=== PATIENT | female | born 1950 | race Caucasian/White ===

== ENCOUNTER 2017-04-30 10:46 | Day surgery (SDC) | payer MEDICARE ==
[2017-04-26 10:54] VITALS: BMI 28.0
[~2017-04-30 10:46] MED LIST: LACTATED RINGERS 1,000 ML IV SCH
[2017-04-30 12:10] VITALS: TEMP 97.3
[2017-04-30] MEDS ORDERED: LIDOCAINE 1% 20 ML VIAL (10MG/ML) FOR IV START INTRADERMA ONE (12:20)
[2017-04-30] MEDS ORDERED: LIDOCAINE 1% INJ 10MG/ML (20 ML MDV) ONE (12:25)
[2017-04-30] MEDS ORDERED: PROPOFOL 10 MG/ML 20 ML VIAL IV ONE (12:25)
[2017-04-30] MEDS ORDERED: MIDAZOLAM 2 MG/2 ML VIAL ONE (12:25)
--- NOTE | 2017-04-30 12:57 | P.PCN ---
Date of Procedure: 04/30/17 Procedure(s) Performed: Procedure: Total colonoscopy. Preoperative diagnosis: Screening for neoplasia. Postoperative diagnosis: Exam within normal limits. Preparation: HalfLytely prep. Sedation: Was provided by anesthesia. Brief clinical history: The patient is a 66-year-old female who is scheduled for this evaluation for screening for neoplasia. Her prior exam was more than 10 years ago. She has no abdominal complaints, bleeding or anemia. Procedure: With the patient on her left lateral decubitus position and after informed consent and adequate sedation, the perianal area was inspected and it did not show any fissures or fistulas. There were no masses felt on digital rectal examination. The Olympus CFQ 160L inserted in the rectum in the usual fashion and advanced to the cecum. The mucosa appeared healthy. No polyps or tumors were seen or any obvious diverticular disease or other pathology. I retroflexed the endoscope in the rectum before the endoscope was withdrawn. The patient tolerated the procedure well. Plan: The patient was reassured. She will follow-up with you as planned and I recommended repeat exam in 10 years.
[2017-04-30 13:18] VITALS: PULSE 69; RESP 18
[2017-04-30] MEDS ORDERED: IV FLUID CONTINUATION 700 ML IV ONE (13:21)
[2017-04-30 13:52] VITALS: BP 175/79
== END 2017-04-30 14:13 | disposition home or self-care (01) ==
LOC: ORWHC2ENDO 10:46
DX: Z12.11 Encounter for screening for malignant neoplasm of colon (principal); K21.9 Gastro-esophageal reflux disease without esophagitis; I10 Essential (primary) hypertension; E78.5 Hyperlipidemia, unspecified; Z79.899 Other long term (current) drug therapy; Z88.5 Allergy status to narcotic agent
CPT/HCPCS: J2250; J2001; J2704; G0121

== ENCOUNTER 2024-08-11 14:04 | Emergency (ER) | payer MEDICARE ==
--- NOTE | 2024-08-11 15:00 | ED ---
Lower Extremity Injury HPI - General Chief Complaint: Extremity Injury, Lower Stated Complaint: L knee pain Time Seen by Provider: 08/11/24 14:20 Source: patient, family, RN notes reviewed Mode of arrival: wheelchair Limitations: no limitations - History of Present Illness Initial Comments: This is a 74-year-old female presenting to the emergency room for complaint of left knee pain. Patient states that 2 to 3 weeks ago she fell onto her left knee after slipping on the ice outside and has been having difficulty bearing weight on the left knee since. States over the past few days she has been able to put pressure on the left knee. Denies previous surgeries of the left knee. - Related Data Home Medications Medication Instructions Recorded Confirmed Simvastatin [Zocor] 20 mg PO 1900 04/26/17 09/05/22 Cetirizine HCl [Zyrtec] 10 mg PO DAILY 09/05/22 09/05/22 Cholecalciferol (Vitamin D3) 75 mcg PO DAILY 09/05/22 09/05/22 [Vitamin D3 (3000 Iu)] Famotidine [Pepcid] 20 mg PO BID 09/05/22 09/05/22 Losartan Potassium 50 mg PO HS 09/05/22 09/05/22 Melatonin 3 mg PO DAILY 09/05/22 09/05/22 atenoloL 25 mg PO DAILY 09/05/22 09/05/22 methIMAzole [Tapazole] 5 mg PO MOWEFR 09/05/22 09/05/22 Allergies Allergy/AdvReac Type Severity Reaction Status Date / Time hydromorphone [From Dilaudid] Allergy Vomiting Verified 08/11/24 14:08 Review of Systems ROS Statement: Those systems with pertinent positive or pertinent negative responses have been documented in the HPI. ROS Other: All systems not noted in ROS Statement are negative. Past Medical History Past Medical History: GERD/Reflux, Hyperlipidemia, Hypertension, Thyroid Disorder Additional Past Medical History / Comment(s): no rx for thyroid currently History of Any Multi-Drug Resistant Organisms: None Reported Past Surgical History: Orthopedic Surgery, Tonsillectomy Additional Past Surgical History / Comment(s): surgery left shoulder, COLONOSCOPY, Past Anesthesia/Blood Transfusion Reactions: No Reported Reaction Past Psychological History: No Psychological Hx Reported Smoking Status: Former smoker Past Alcohol Use History: None Reported Past Drug Use History: None Reported - Past Family History Father Family Medical History: Cancer General Exam - General Exam Comments Initial Comments: Visual Physical Exam Vital signs reviewed General: Well-appearing, nontoxic, no acute distress. Head: Normocephalic, atraumatic Eyes: PERRLA, EOMI ENT: Airway patent Chest: Nonlabored breathing Skin: No visual rash, normal skin tone Neuro: Alert and oriented 3 Musculoskeletal: No gross abnormalities Limitations: no limitations General appearance: alert, in no apparent distress Respiratory exam: Present: normal lung sounds bilaterally. Absent: respiratory distress, wheezes, rales, rhonchi, stridor Cardiovascular Exam: Present: regular rate, normal rhythm, normal heart sounds. Absent: systolic murmur, diastolic murmur, rubs, gallop, clicks GI/Abdominal exam: Present: soft, normal bowel sounds. Absent: distended, tenderness, guarding, rebound, rigid Left Knee exam: Present: full ROM, tenderness. Absent: abrasion, ecchymosis, deformity, crepitus, effusion Gait: not tested/not observed Back exam: Present: normal inspection Skin exam: Present: warm, dry, intact, normal color. Absent: rash Course Vital Signs 08/11/24 14:05 Temperature 97.4 F L Pulse Rate 99 Respiratory 20 Rate Blood Pressure 210/79 O2 Sat by Pulse 96 Oximetry Medical Decision Making - Medical Decision Making Was pt. sent in by a medical professional or institution (Dr. PA, [facility] [employer] [facility], urgent care, hospital, or care home...) When possible be specific @ -No Did you speak to anyone other than the patient for history (EMS, parent, family, police, friend...)? What history was obtained from this source @ -No Did you review nursing and triage notes (agree or disagree)? Why? @ -I reviewed and agree with nursing and triage notes Were old charts reviewed (outside hosp., previous admission, EMS record, old EKG, old radiological studies, urgent care reports/EKG's, care home records)? Report findings @ -No old charts were reviewed Differential Diagnosis (chest pain, altered mental status, abdominal pain women, abdominal pain men, vaginal bleeding, weakness, fever, dyspnea, syncope, headache, dizziness, GI bleed, back pain, seizure, CVA, palpatations, mental health, musculoskeletal)? @ -Differential Musculoskeletal Muscular strain, contusion, ligament sprain, fracture, arthritis, septic arthritis, bursitis, cellulitis, muscle spasm, nerve compression, DVT, arterial occlusion, herpes zoster, electrolyte abnormality, tumor.... This is not meant to be in all inclusive list EKG interpreted by me (3pts min.). @ -none X-rays interpreted by me (1pt min.). @ -X-ray of the right knee reveals no acute osseous abnormality CT interpreted by me (1pt min.). @ -CT of the left knee completed with no acute trauma and mild osteoarthritic changes U/S interpreted by me (1pt. min.). @ -None done What testing was considered but not performed or refused? (CT, X-rays, U/S, labs)? Why? @ -None What meds were considered but not given or refused? Why? @ -None Did you discuss the management of the patient with other professionals (professionals i.e. , PA, [facility] [employer] [facility], lab, RT, psych nurse, social work lecturer, dining service supervisor, teacher, complaint evaluation officer, medical case worker)? Give summary @ -No Was smoking cessation discussed for >3mins.? @ -No Was critical care preformed (if so, how long)? @ -No Were there social determinants of health that impacted care today? How? (Homelessness, low income, unemployed, alcoholism, drug addiction, transportation, low edu. Level, literacy, decrease access to med. care, senior living, rehab)? @ -No Was there de-escalation of care discussed even if they declined (Discuss DNR or withdrawal of care, Hospice)? DNR status @ -No What co-morbidities impacted this encounter? (DM, HTN, Smoking, COPD, CAD, Cancer, CVA, ARF, Chemo, Hep., AIDS, mental health diagnosis, sleep apnea, morbid obesity)? @ -None Was patient admitted / discharged? Hospital course, mention meds given and route, prescriptions, significant lab abnormalities, going to OR and other pertinent info. @ -Discharge. This is a 74-year-old female presenting to the emergency department for left knee pain. Started to have surgery worsening left knee with pain palpation of the anterior knee. Initial x-ray was completed with no abnormality however with concern for patient being unable to bear weight CT is ordered. CT is unremarkable. With patient still having symptoms concerning of left knee injury that may be soft tissue related that she is provided with a knee immobilizer and crutches and orthopedic follow-up. From that she continue Tylenol Motrin as needed in addition to resting and elevating the affected knee. Case discussed with Dr. Powell Undiagnosed new problem with uncertain prognosis? @ -No Drug Therapy requiring intensive monitoring for toxicity (Heparin, Nitro, Insulin, Cardizem)? @ -No Were any procedures done? @ -No Diagnosis/symptom? @ -left knee pain Acute, or Chronic, or Acute on Chronic? @ -acute Uncomplicated (without systemic symptoms) or Complicated (systemic symptoms)? @ -uncomplicated Side effects of treatment? @ -No Exacerbation, Progression, or Severe Exacerbation? @ -No Poses a threat to life or bodily function? How? (Chest pain, [place], [place], pneumonia, PE, COPD, DKA, ARF, appy, cholecystitis, CVA, Diverticulitis, Homicidal, Suicidal, threat to staff... and all critical care pts) @ -No Disposition Clinical Impression: Left knee pain Disposition: HOME SELF-CARE Condition: Good Instructions (If sedation given, give patient instructions): Knee Pain (ED) Additional Instructions: Please return to the Emergency Department if symptoms worsen or any other concerns. Is patient prescribed a controlled substance at d/c from ED?: No Referrals: Marga Sweet DO [Primary Care Provider] - 1-2 days Gio Hall DO [Doctor of Osteopathic Medicine] - 1-2 days Time of Disposition: 17:08
--- NOTE | 2024-08-11 15:01 | XR ---
EXAMINATION TYPE: XR knee complete LT DATE OF EXAM: 08/11/2024 COMPARISON: NONE CLINICAL INDICATION: Female, 74 years old with history of Pain; TECHNIQUE: 3 views FINDINGS: Extensor mechanism is intact. Trace degenerative spurring patellofemoral compartment. No kn ee joint effusion. No acute fracture, subluxation, dislocation seen. IMPRESSION: No acute osseous abnormality is seen. If symptoms persist, consider MRI. [facility], Workstation: [facility], 08/11/2024 2:59 PM
--- NOTE | 2024-08-11 16:33 | CT ---
EXAMINATION TYPE: CT knee LT wo con DATE OF EXAM: 08/11/2024 COMPARISON: None CLINICAL INDICATION: Female, 74 years old with history of pain, fall; [facility], left knee pain, fall x few weeks ago CT DLP: 145.4 mGycm Automated exposure control for dose reduction was used. FINDINGS: There is no fracture, dislocation or focal intraosseous abnormality. There is no joint effusion. There is mild narrowing and subchondral changes in patellofemoral compartment indicating mild patello femoral arthritis. Soft tissues unremarkable. IMPRESSION: 1. No acute trauma. 2. Mild patellofemoral osteoarthritic change. [facility], Workstation: [facility], 08/11/2024 4:31 PM
[2024-08-11 17:44] VITALS: BP 168/80; PULSE 86; RESP 18; TEMP 97.6
== END 2024-08-11 17:42 | disposition home or self-care (01) ==
LOC: EC 14:04
DX: M25.562 Pain in left knee (principal); Z87.891 Personal history of nicotine dependence; Z88.8 Allergy status to other drugs, medicaments and biological substances; W00.0XXA Fall on same level due to ice and snow, initial encounter
CPT/HCPCS: 73562; 73700; 99284; L1830